=== PATIENT | male | born 1975 | race Caucasian/White ===

== ENCOUNTER 2016-11-13 14:39 | Emergency (ER) | payer BC ==
[~2016-11-13 14:39] MED LIST: FLUT1SPR9 EACH NARE; MIRA33504 PO; SUBO2MIS SL
[2016-11-13 14:41] VITALS: BP 140/84; PULSE 88; RESP 24; TEMP 97.7; O2SAT 98
--- NOTE | 2016-11-13 14:59 | PD ---
HPI . Left-sided back, flank pain and lower quadrant pain Chief Complaint: GI Complaint Time Seen by Provider: 14:59 Travel History International Travel<30 days: No Contact w/Intl Traveler<30days: No Traveled to known affect area: No History of Present Illness HPI 41-year-old male with no past medical history other than chronic constipation here with complaints of left lower quadrant pain, left-sided flank pain and left back pain. Patient says approximately 2-3 days ago he developed a sudden onset of back pain that he thought was related to kidney issues. He started taking [id number] Azo to flush his system. He says the pain continued to persist and then started to move around to the flank and left lower quadrant. He tells me the pain is severe with any form of touch, he also reports 6/10 pain at rest. He denies radiation elsewhere. He tells me he does not have fever, chills, nausea or vomiting. He denies any recent injury. He denies any chest pain or shortness of breath. He says this pain is different from his constipation pain and that he had a bowel movement yesterday. He is accompanied by his fiance. [facility] Past Medical History ADHD: Yes Anxiety: Yes Diminished Hearing: No Immunizations Current: Yes Social History Alcohol Use: Yes (occasional) Tobacco Use: No (FORMER) Substance Use: No (FORMER) Allergies-Medications (Allergen,Severity, Reaction): Coded Allergies: No Known Allergies (Verified , 05/22/16) Reported Meds & Prescriptions Reported Meds & Active Scripts Active Flexeril (Cyclobenzaprine HCl) 5 Mg Tab 5 Mg PO TID Reported Suboxone Sublingual Film (Buprenorphine-Naloxone Sublingual Film) 2-0.5 Mg Film 1 Tab SL DAILY Unique ID number required: Miralax Powder (Polyethylene Glycol 3350 Powder) 17 Gm Powd 17 Gm PO DAILY Mix and dissolve one measuring cap-ful (17 grams) in water or juice. Flonase Allergy Relief Children Nasal Kane (Fluticasone Nasal Kane) 50 Mcg/ Act Kane 2 Kane EACH NARE DAILY 50 mcg/spray Review of Systems General / Constitutional: No: Fever Eyes: No: Visual changes HENT: No: Headaches Cardiovascular: No: Chest Pain or Discomfort Respiratory: No: Shortness of Breath Gastrointestinal: Positive: Abdominal Pain (LLQ) Genitourinary: Positive: Flank Pain (left), No: Dysuria Musculoskeletal: Positive: Pain (left sided back ) Skin: No Rash Neurologic: No: Weakness Psychiatric: No: Depression Endocrine: No: Polydipsia Hematologic/Lymphatic: No: Easy Bruising Physical Exam Narrative GENERAL: AAO x 3, Well-nourished, well-developed patient. Appears uncomfortable SKIN: Warm and dry. No visible rashes or bruising. HEAD: Normocephalic and atraumatic. EYES: No scleral icterus. No injection or drainage. EOM intact, PERRLA ENT: No nasal drainage noted. Mucous membranes pink. Airway patent. NECK: Supple, trachea midline. No JVD. No lymphadenopathy CARDIOVASCULAR: Regular rate and rhythm without murmurs, gallops, or rubs. RESPIRATORY: Breath sounds equal bilaterally. No accessory muscle use. No rhonchi or rales. GASTROINTESTINAL: Abdomen soft, tenderness to palpation in the left lower quadrant. There is also tenderness along the left flank. EXTREMITIES: No cyanosis or edema. BACK: Nontender without obvious deformity. 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 Data Data Last Documented VS Vital Signs Date Time Temp Pulse Resp B/P Pulse Ox O2 Delivery O2 Flow Rate FiO2 11/13/16 14:41 97.7 88 24 140/84 98 Room Air Orders Basic Metabolic Panel (Bmp) (11/13/16 14:59) Urinalysis - C+S If Indicated (11/13/16 15:38) Ct Abd/Pel W/O Iv Contrast (11/13/16 15:38) Labs Laboratory Tests Test 11/13/16 11/13/16 15:10 15:50 Sodium Level 143 MEQ/L Potassium Level 5.1 MEQ/L Chloride Level 106 MEQ/L Carbon Dioxide Level 32.5 MEQ/L Anion Gap 5 MEQ/L Blood Urea Nitrogen 17 MG/DL Creatinine 1.13 MG/DL Estimat Glomerular Filtration 72 ML/MIN Rate Random Glucose 67 MG/DL Calcium Level 8.9 MG/DL Urine Color YELLOW Urine Turbidity HAZY Urine pH 5.5 Urine Specific [place] 1.032 Urine Protein TRACE mg/dL Urine Glucose (UA) NEG mg/dL Urine Ketones NEG mg/dL Urine Occult Blood NEG Urine Nitrite NEG Urine Bilirubin NEG Urine Urobilinogen LESS THAN 2.0 MG/DL Urine Leukocyte Esterase NEG Urine RBC 1 /hpf Urine WBC 1 /hpf Urine Squamous Epithelial <1 /hpf Cells Urine Mucus FEW /lpf Microscopic Urinalysis Comment CULT NOT INDICATED MDM Medical Decision Making Medical Screen Exam Complete: Yes Emergency Medical Condition: Yes Medical Record Reviewed: Yes Differential Diagnosis Nephrolithiasis, muscle strain, constipation, Narrative Course 41-year-old male here with complaints of left-sided back pain, flank pain and left lower quadrant pain. Physical examination reveals tenderness in the left lower quadrant, left flank and CVA tenderness on the left side. CT scan of the abdomen and pelvis done to rule out any kidney stones. It is possible The patient could also have simple muscle strain in this area. He reports some issues with constipation in the past and this may be contributing to his issues as well. Labs are unremarkable. CT scan abdomen and pelvis unremarkable. Last Impressions Abdomen/Pelvis CT 11/13/16 1538 Signed Impressions: Service Date/Time: Tuesday, November 13, 2016 17:06 - CONCLUSION: Negative CT of the abdomen and pelvis. No stones or obstructive uropathy of either kidney. Gianni Clifton MD Laboratory Tests Test 11/13/16 11/13/16 15:10 15:50 Sodium Level 143 MEQ/L Potassium Level 5.1 MEQ/L Chloride Level 106 MEQ/L Carbon Dioxide Level 32.5 MEQ/L Anion Gap 5 MEQ/L Blood Urea Nitrogen 17 MG/DL Creatinine 1.13 MG/DL Estimat Glomerular Filtration 72 ML/MIN Rate Random Glucose 67 MG/DL Calcium Level 8.9 MG/DL Urine Color YELLOW Urine Turbidity HAZY Urine pH 5.5 Urine Specific [place] 1.032 Urine Protein TRACE mg/dL Urine Glucose (UA) NEG mg/dL Urine Ketones NEG mg/dL Urine Occult Blood NEG Urine Nitrite NEG Urine Bilirubin NEG Urine Urobilinogen LESS THAN 2.0 MG/DL Urine Leukocyte Esterase NEG Urine RBC 1 /hpf Urine WBC 1 /hpf Urine Squamous Epithelial <1 /hpf Cells Urine Mucus FEW /lpf Microscopic Urinalysis Comment CULT NOT INDICATED I discussed with patient that I believe that he may have some muscle strain. I recommend a course of muscle relaxers. I advised that he follows up with his primary care provider. Patient verbalized understanding of instructions, questions were answered, and thanked me for their care. I advised them if their condition worsens, please return to the nearest emergency room for further care. Diagnosis Primary Impression: Muscle strain Patient Instructions: General Instructions Additional Instructions: Please return to emergency department if your symptoms return or worsen. Follow up with your primary care provider. Take medications as prescribed. Muscle relaxers can cause drowsiness. Do not drive, swim or operate heavy machinery while using these medications. Med/Other Pt SpecificInfo: Prescription(s) given Scripts Cyclobenzaprine (Flexeril)5 Mg Tab5 Mg PO TID #21 TAB Prov:Teresa Roque MD 11/13/16 Condition: Stable [place] Nov 13, 2016 14:59
[2016-11-13 15:47] LABS: BICARBONATE 32.5 MEQ/L (21.0-32.0); POTASSIUM 5.1 MEQ/L (3.5-5.1)
[2016-11-13 16:30] LABS: BLOOD, URINE NEG (NEG); COMMENT (UR) CULT NOT INDICATED; CULTURE IF INDICATED CULT NOT INDICATED; GLUCOSE,URINE NEG (NEG); KETONE, URINE NEG (NEG); MUCUS URINE FEW /lpf (OCC); NITRITE,URINE NEG (NEG); PH, URINE 5.5 (5.0-8.5); SQUAMOUS EPITHELIAL CELL URINE <1 /hpf (0-5); URINE COLOR YELLOW (YELLW/STRAW)
--- NOTE | 2016-11-13 17:20 | RADRPT ---
EXAM DATE/TIME: 11/13/2016 17:06 [facility] COMPARISON: No previous studies available for comparison. INDICATIONS : Left flank pain. ORAL CONTRAST: No oral contrast ingested. RADIATION DOSE: 13.59 CTDIvol (mGy) MEDICAL HISTORY : None SURGICAL HISTORY : None. ENCOUNTER: Initial ACUITY: 3 days PAIN SCALE: 5/10 LOCATION: Left flank TECHNIQUE: Volumetric scanning of the abdomen and pelvis was performed. Using automated exposure control and ad justment of the mA and/or kV according to patient size, radiation dose was kept as low as reasonably achievable to obtain optimal diagnostic quality images. FINDINGS: LOWER LUNGS: The visualized lower lungs are clear. LIVER: Homogeneous density without lesion. There is no dilation of the biliary tree. No calcified gallston es. SPLEEN: Normal size without lesion. PANCREAS: Within normal limits. KIDNEYS: Normal in size and shape. There is no mass, stone, or hydronephrosis. ADRENAL GLANDS: Within normal limits. VASCULAR: There is no aortic aneurysm. BOWEL/MESENTERY: The stomach, small bowel, and colon demonstrate no acute abnormality. There is no free intraperitone al air or fluid. Normal appendix. ABDOMINAL WALL: Within normal limits. RETROPERITONEUM: There is no lymphadenopathy. BLADDER: No wall thickening or mass. REPRODUCTIVE: Within normal limits. INGUINAL: There is no lymphadenopathy or hernia. MUSCULOSKELETAL: Within normal limits for patient age. CONCLUSION: Negative CT of the abdomen and pelvis. No stones or obstructive uropathy of either kidney. Gianni Clifton MD on November 13, 2016 at 17:17 Board Certified Radiologist. This report was verified electronically.
[2016-11-13] MEDS ORDERED: CYCL5TAB PO (17:30)
== END 2016-11-13 18:22 | disposition home or self-care (01) ==
LOC: NEPD 14:39
DX: S39.011A Strain of muscle, fascia and tendon of abdomen, initial encounter (principal); X58.XXXA Exposure to other specified factors, initial encounter
CPT/HCPCS: 74176; 80048; 81001